=== PATIENT | female | born 1985 | race Hispanic/Latino ===

== ENCOUNTER 2020-10-24 16:05 | Emergency (ER) | payer SELFPAY ==
[2020-10-24 16:19] VITALS: BP 114/79; PULSE 65; RESP 16; TEMP 36.7; O2SAT 99
--- NOTE | 2020-10-24 16:21 | ED.WOUNDLAC ---
HPI - Wound/Laceration General Chief Complaint: Wound/Laceration Stated Complaint: Dog Bite Time Seen by Provider: 10/24/20 16:22 Source: patient, RN notes reviewed and old records reviewed Mode of arrival: ambulatory Limitations: language barrier and other (niece as teacher public health) History of Present Illness HPI narrative: 35 year old female accompanied by family member of niece who is teacher public health presents to express care with complaint of sustaining a dog bite on the 2nd distal toe of her right foot yesterday. Patient reports concern since dog is not up to date on its vaccinations is a co-workers dog. Patient reports that she is up to date on her vaccinations. Small puncture wound noted to the dorsal distal aspect of her right 2nd toe with no acute redness or any drainage noted.Patient reports pain as 5/10 described as aching and increases with palpation of area.Patient denies any fevers, chills or sweats. Onset (ago): day(s) (1) Extremity Location: Right: foot (2nd distal toe) Related Data Allergies Allergy/AdvReac Type Severity Reaction Status Date / Time No Known Allergies Allergy Verified 10/24/20 16:16 Review of Systems Review of Systems: CONSTITUTIONAL: Denies fever, chills, or sweats. EYES: Denies visual changes, redness, or discharge. ENT: Denies rhinorrhea, congestion, sore throat, or otalgia. CARDIOVASCULAR: Denies chest pain, palpitations, or edema. RESPIRATORY: Denies cough or dyspnea. GASTROINTESTINAL: Denies abdominal pain, nausea, vomiting, or diarrhea. GENITOURINARY: Denies dysuria or hematuria. SKIN: Denies rash or itching.Positive for puncture wound to distal 2nd toe of right foot from dog bite MUSCULOSKELETAL: Denies back pain, joint pain, or myalgia. NEUROLOGIC: Denies headache, numbness, or weakness. PSYCHIATRIC: Denies anxiety or depression. All systems reviewed & are unremarkable except as noted in HPI and below PMFSH Past Medical History Medical History (Updated 10/28/20 @ 10:38 by Georgia Knowles NP) No pertinent past medical history Surgical History Surgical History (Updated 10/28/20 @ 10:38 by Georgia Knowles NP) No history of previous surgery Family History Family History (Updated 10/28/20 @ 10:39 by Georgia Knowles NP) Other No significant family history Social History Social History (Updated 10/28/20 @ 10:39 by Georgia Knowles NP) Smoking status: Never smoker Alcohol intake: never Substance use: never Living arrangements: with family Gender identity (if verbalized by the patient): Female Comments At time of signature, agree with nursing past medical, surgical, social and family history. There is no relevant family history pertinent to the presenting complaint Exam Narrative: GENERAL: Well-appearing, well-nourished, and in no acute distress. HEAD: Normocephalic, atraumatic. EYES: PERRLA and EOMI. ENT: Nares clear, no rhinorrhea or epistaxis. Mucous membranes moist. NECK: Supple.no lymphadenopathy CHEST: Clear to auscultation. No respiratory distress.SAO2 99% on room air HEART: Regular rate and rhythm. No murmur heard. Normal peripheral pulses. ABDOMEN: Soft, nontender, nondistended, normal active bowel sounds. EXTREMITIES: Normal range of motion. No edema. SKIN: Warm, dry, no rash.Puncture wound to the distal 2nd toe of patient's right foot from dog bite from small dog, no drainage or redness surrounding puncture, no injury to the nail note, tenderness voiced on palpation of area with no swelling. Circulation, sensation, and mobility intact to her right foot and 2nd toe. NEURO: No focal deficits. Alert and oriented x3. Course Vital Signs Vital signs: Vital Signs Temperature 36.7 C 10/24/20 16:19 Pulse Rate 65 10/24/20 16:19 Respiratory Rate 16 10/24/20 16:19 Blood Pressure 114/79 10/24/20 16:19 Pulse Oximetry 99 10/24/20 16:19 Temperature 36.7 C 10/24/20 16:22 Pulse Rate 65 10/24/20 16:22 Respiratory Rate 16 10/24/20 16:
[2020-10-24 16:22] VITALS: BP 114/79; PULSE 65; RESP 16; TEMP 36.7; O2SAT 99
[2020-10-24] MEDS: TETANUS,DIPHTHERIA,AC PERTUSSIS ADULT (0.5 ML) BOOSTRIX IM (16:33)
== END 2020-10-24 16:51 | disposition home or self-care (01) ==
PROVIDERS: Emergency Provider Registered Nurse
DX: S91.154A Open bite of right lesser toe(s) without damage to nail, initial encounter (principal); W54.0XXA Bitten by dog, initial encounter; Z23 Encounter for immunization
CPT/HCPCS: 90471; 90715; 99203; G0463